=== PATIENT | male | born 1980 | race Caucasian/White ===

== ENCOUNTER 2017-09-29 11:37 | Emergency (ER) | payer OTHER, SELFPAY | END 2017-09-29 12:49 | disposition home or self-care (01) | LOC: MADERS 11:37 | DX: S29.012A Strain of muscle and tendon of back wall of thorax, initial encounter (principal); K21.9 Gastro-esophageal reflux disease without esophagitis; I10 Essential (primary) hypertension; Z79.899 Other long term (current) drug therapy; W20.8XXA Other cause of strike by thrown, projected or falling object, initial encounter | CPT/HCPCS: 99283 ==

== ENCOUNTER 2017-10-10 09:34 | Emergency (ER) | payer OTHER, SELFPAY ==
[2017-10-10] MEDS ORDERED: Naproxen 500 MG TAB ONE (10:15)
[2017-10-10] MEDS ORDERED: HYDROcodone/Acetaminophen 10/325 mg Tablet ONE (10:15)
[2017-10-10] MEDS ORDERED: Diazepam 5 MG TAB ONE (10:15)
--- NOTE | 2017-10-10 11:39 | RAD ---
THORACIC SPINE 3 VIEWS: Date: 10/10/17 HISTORY: Injury with back pain. FINDINGS: Thoracic vertebra maintain normal height and alignment. No compression fracture identified. Mild dege nerative changes are seen with small anterior osteophytes. Slight curvature to the right and mid thor acic spine in the AP projection. T1 and T2 are not well evaluated on the lateral plane, even on swimmer's view, due to poor exposure. IMPRESSION: No evidence of acute compression fracture. T1 and T2 are not adequately evaluated. There are mild deg enerative changes. POS: PHILLIP
== END 2017-10-10 12:05 | disposition home or self-care (01) ==
LOC: MADERS 09:34
DX: M62.830 Muscle spasm of back (principal); K21.9 Gastro-esophageal reflux disease without esophagitis; I10 Essential (primary) hypertension; Z79.899 Other long term (current) drug therapy
CPT/HCPCS: 72072